=== PATIENT | female | born 1935 | race Caucasian/White ===

== ENCOUNTER 2017-06-23 07:39 | Observation (INO) | payer OTHER ==
[~2017-06-23] VITALS: Ht 157.5 cm; Wt 50.0 kg
[~2017-06-23 07:39] MED LIST: ADULT LOW DOSE81 M1 PO; ASPIRIN325 MG PO; ASPIRIN81 M1 PO; BUDEPRION XL300 MG PO; BUSPAR15 MG PO; CLARITIN-D 21 TABLET PO; COMBIVENT RESPIM4 GM IH; COMBIVENT200 INHALA IH; CORTISPORIN EAR10 ML BOTH EARS; Ceftin PO; DEXILANT60 MG PO; FAMOTIDINE20 MG PO; FLONASE16 G1 BOTH NARES; FLONASE16 GM NS; GAS-X80 MG PO; HYDROCHLOROTHIA25 MG PO; LEVOFLOXACIN750 MG PO; MUCINEX D ER T1 EACH PO; NASONEX17 GM BOTH NARES; NEXIUM20 MG PO; PEPCID20 MG PO; PROTONIX40 MG PO; SIMVASTATIN10 M1 PO; STOOL SOFTENER100 MG PO; TUMS500 MG PO; TYLENOL PM EX-1 EACH PO; WELLBUTRIN XL150 MG PO; WELLBUTRIN XL300 MG PO; Xanax PO; ZOCOR10 MG PO; Zithromax PO
[2017-06-23 08:11] LABS: BASOPHIL (%) 0.7 % (0-1); EOSINOPHIL (%) 2.1 % (0-5); EOSINOPHIL COUNT 0.1 K/uL (0-0.3); HEMATOCRIT 43.6 % (36.0-46.0); HEMOGLOBIN 14.7 G/DL (11.9-15.5); LYMPHOCYTE (%) 10.9 % (15-42); LYMPHOCYTE COUNT 0.5 K/uL (1.0-2.8); MCH 31.5 PG (29.0-34.0); MCHC 33.7 G/DL (30.0-36.0); MCV 93.4 FL (83-99); MONOCYTE COUNT 0.3 K/uL (0-0.8); NEUTROPHIL (%) 79.3 % (45-76); NEUTROPHIL COUNT 3.4 K/uL (1.8-6.4); PLATELET COUNT 278 K/uL (156-360); RBC DIS.WIDTH-CV 11.9 % (11.8-14.6); RBC DIS.WIDTH-SD 41.1 % (39-53); RED BLOOD COUNT 4.67 M/uL (3.80-5.20); WHITE BLOOD COUNT 4.3 K/uL (4.1-10.2)
[2017-06-23 08:30] LABS: ALBUMIN 3.7 g/dL (3.2-4.8); CHLORIDE 105 mEq/L (99-109); POTASSIUM 3.8 mEq/L (3.7-5.4); SODIUM 137 mEq/L (136-147)
[2017-06-23 08:32] LABS: TROP-I INTERPRETATION NEGATIVE; TROPONIN-I < 0.01 ng/mL (0.0-0.30)
[2017-06-23 08:33] LABS: GLUCOSE 175 mg/dL (70-99); TOTAL PROTEIN 6.6 g/dL (6.4-8.3)
[2017-06-23 08:35] LABS: TOTAL BILIRUBIN 0.3 mg/dL (0.0-1.0)
[2017-06-23 08:36] LABS: ALKALINE PHOSPHATASE 76 IU/L (3-129); CREATININE 0.9 mg/dL (0.6-1.3); GFR ESTIMATE (CALCULATED) > 59 mL/min/
[2017-06-23 08:37] LABS: UREA NITROGEN (BUN) 16 mg/dL (9-23)
[2017-06-23 08:38] LABS: AST (GOT) 19 IU/L (2-34)
[2017-06-23 08:39] LABS: ALT (GPT) 22 IU/L (3-49)
[2017-06-23 08:40] LABS: LIPASE 15 U/L (1.0-51.0)
[2017-06-23] MEDS ORDERED: ATARAX,VISTARIL25 MG PO (10:18)
[2017-06-23] MEDS ORDERED: THEOPHYLLINE600 MG PO (10:28)
[2017-06-23] MEDS ORDERED: DOXEPIN HCL50 MG PO (10:29)
[2017-06-23] MEDS ORDERED: NEXIUM 24HR20 M2 PO (10:37)
[2017-06-23 12:00] VITALS: BP 142/73
[2017-06-23 14:22] LABS: TROP-I INTERPRETATION NEGATIVE; TROPONIN-I < 0.01 ng/mL (0.0-0.30)
[2017-06-23 16:40] VITALS: BP 125/59
[2017-06-23 17:18] LABS: APPEARANCE CLEAR ((CLEAR)); BILIRUBIN NEGATIVE; BLOOD NEGATIVE; COLOR YELLOW ((YELLOW)); GLUCOSE (STRIP) NEGATIVE; KETONES NEGATIVE; LEUKOCYTES LARGE; NITRITE POSITIVE; PROTEIN (STRIP) NEGATIVE; UROBILINOGEN 0.2 MG/DL (0.2-1.0)
[2017-06-23 17:27] LABS: BACTERIA 2+ /HPF; EPITHELIAL CELLS 1+ /HPF; MUCUS TRACE /LPF; RED BLOOD CELLS 0-5 /HPF (0-5); UCUL ADDED? YES; WHITE BLOOD CELLS 15-20 /HPF (0-5)
[2017-06-23 17:46] LABS: SPECIFIC GRAVITY 1.056 (1.000-1.030)
[2017-06-23 20:00] VITALS: BP 116/61
[2017-06-23 20:31] LABS: TROP-I INTERPRETATION NEGATIVE; TROPONIN-I 0.01 ng/mL (0.0-0.30)
[2017-06-24] VITALS: BP 123/61
[2017-06-24 06:32] LABS: CHLORIDE 111 MEQ/L (99-109); CREATININE 0.9 MG/DL (0.6-1.3); GFR ESTIMATE (CALCULATED) > 59 mL/min/; POTASSIUM 3.9 MEQ/L (3.7-5.4); SODIUM 143 MEQ/L (136-147); UREA NITROGEN (BUN) 8 mg/dL (9-23)
[2017-06-24 06:33] LABS: GLUCOSE 82 mg/dL (70-99)
[2017-06-24 10:59] VITALS: BP 138/68
== END 2017-06-24 16:42 | disposition home or self-care (01) ==
LOC: EME 07:39 → EDOF 10:00 → 5WEST 10:00 → EDOF 10:00 → ENRESERV 10:01 → 5WEST 11:56
PROVIDERS: Emergency Medicine; Internal Medicine
DX: R10.13 Epigastric pain (principal); R94.8 Abnormal results of function studies of other organs and systems; K21.9 Gastro-esophageal reflux disease without esophagitis; Z87.11 Personal history of peptic ulcer disease; J44.9 Chronic obstructive pulmonary disease, unspecified; I10 Essential (primary) hypertension; F32.9 Major depressive disorder, single episode, unspecified; E78.5 Hyperlipidemia, unspecified; F41.9 Anxiety disorder, unspecified; Z87.891 Personal history of nicotine dependence; Z88.8 Allergy status to other drugs, medicaments and biological substances
CPT/HCPCS: 71260; 74177; 80048; 80053; 81003; 83605; 83690; 84484; 85025; 87077; 87086; 87177; 87186; 87329; 87493; 87506; 93005; 94640; 94799; G0378; J1650; J2405; J2765; J3010; J7030; J7040; Q0177; S0028